=== PATIENT | female | born 1970 | race Caucasian/White ===

== ENCOUNTER 2019-01-24 22:14 | Emergency (ER) | payer OTHER ==
[~2019-01-24] VITALS: Ht 152.4 cm; Wt 47.2 kg
[2019-01-24 23:04] VITALS: BP_SYST 125
--- NOTE | 2019-01-24 23:10 | NUR ---
Darya small in ED - 01/25/[address] at [address] Rayo boyle for Pt flyal
--- NOTE | 2019-01-24 23:12 | NUR ---
Pt placed to ER waiting room in stable condition. Patient localizes chest wall pain generalized to sternum, pain with respirations and palpation.
--- NOTE | 2019-01-24 23:13 | NUR ---
Patient to ER bed 6 to gown for evaluation. Side rails up.
--- NOTE | 2019-01-24 23:14 | NUR ---
Dr. Cade bedside for Pt eval
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
--- NOTE | 2019-01-25 01:06 | NUR ---
Darya small in ED - 01/25/19 at [address] Rayo boyle for Pt flyal
[2019-01-25 02:00] VITALS: BP_SYST 138
--- NOTE | 2019-01-25 02:00 | NUR ---
Patient given written and verbal discharge instructions and verbalizes understanding. ER MD discussed with patient the results and treatment provided. Patient in stable condition. ID arm band removed. Rx of Cohagen and Zofran given. Patient educated on pain management and to follow up with PMD. Pain Scale 0/10 Opportunity for questions provided and answered. Medication side effect fact sheet provided.
== END 2019-01-25 02:00 | disposition home or self-care (01) ==
LOC: SED 22:14
DX: S22.31XA Fracture of one rib, right side, initial encounter for closed fracture (principal); V89.2XXA Person injured in unspecified motor-vehicle accident, traffic, initial encounter; Y93.89 Activity, other specified; Y92.410 Unspecified street and highway as the place of occurrence of the external cause; Y99.8 Other external cause status
CPT/HCPCS: 71045; 99283